=== PATIENT | male | born 1990 | race Caucasian/White ===

== ENCOUNTER 2018-02-10 17:21 | Emergency (ER) | payer SELFPAY ==
--- NOTE | 2018-02-10 17:54 | EDPHY ---
General - History Smoking Status: Current every day smoker Time Seen by Provider: 02/10/18 17:44 Narrative: CHIEF COMPLAINT: [facility] hold, intoxicated HISTORY OF PRESENT ILLNESS: Patient presents to emergency depart by EMS on ARC hold for acute alcohol intoxication. The patient says that he has been drinking whiskey and beer since 12:00 p.m. Today. Says he became very intoxicated and is "very sorry about this." He has no reports of fall or injury. His is been with him drinking as well, but she says she has had significantly less intake than him. She states that "he has had way too much to drink" but denies any injuries. He has no complaints of any kind. No modifying factors. REVIEW OF SYSTEMS: 10 systems were reviewed and negative with the exception of the elements mentioned in the history of present illness. PCP: None SPECIALISTS: None PAST MEDICAL HISTORY: Denies any medical history PAST SURGICAL HISTORY: Denies surgical history SOCIAL HISTORY: Denies tobacco use. Occasional alcohol use. Occasional marijuana use. 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 FAMILY HISTORY: Noncontributory EXAMINATION: General Appearance: Alert, no distress. Conversing in full sentences. Head: normocephalic, atraumatic Eyes: Pupils equal and round, no conjunctival pallor or injection ENT, Mouth: Mucous membranes moist. Airway patent Neck: Normal inspection, supple, non-tender Respiratory: Lungs are clear to auscultation Cardiovascular: Regular rate and rhythm. No murmur Gastrointestinal: Abdomen is soft and nontender Back: non-tender, no bony abnormalities Neurological: GCS 15. A&O, nonfocal, ambulatory without assistance. No ataxia. Normal [id number]. Skin: Warm and dry, no rash. No petechiae or purpura. No laceration or puncture Extremities: Nontender, no pedal edema Psychiatric: Mood and affect normal DIFFERENTIAL DIAGNOSES: Including but not limited to acute alcohol intoxication, alcohol dependency, alcohol abuse MDM: 5:45 p.m. Acute alcohol intoxication with no complaints of any kind. The patient does have strong odor of alcohol and appears to be intoxicated, but he is conversing in full sentences. He has ambulated without assistance. He has no abnormalities on examination with no reports of fall or injury. His spouse is at bedside and corroborates this. She has been drinking and is not comfortable driving him home at this time. Thus they will have a friend come to the emergency department. Otherwise they will be transported to the arc on an arc hold. I do feel it is reasonable further friend to take him home at this time if the when to come in and dried the home. 7:15 p.m. Patient has a friend, Gonzalo, at bedside. He is willing to take the patient and his home safely. He knows they are not allowed to drive until tomorrow. We discussed rest, increase fluid intake and ED precautions. He is discharged home stable condition. SUPERVISION: This patient was independently evaluated without direct involvement of or examination by the attending physician. CONSULTATION: None (Lan Chávez) Medical Decision Making: I did not see this patient while he was in the emergency department. However his care was discussed with the PA while the patient was in the department. I agree with treatment plan and management (Mandeep Torres) - Objective Vital Signs: Initial Vital Signs Temperature (C) 97.7 F 02/10/18 17:26 Heart Rate 83 02/10/18 17:26 Respiratory Rate 16 02/10/18 17:26 Blood Pressure 125/83 H 02/10/18 17:26 O2 Sat (%) 94 02/10/18 17:26 O2 Delivery Mode Room Air Allergies/Adverse Reactions: No Known Allergies Allergy (Unverified 02/10/18 17:26) Home Medications: Medication Instructions Recorded NK [No Known Home Meds] 02/10/18 Departure - Departure Disposition: Home, Routine, Self-Care Clinical Impression: Acute alcohol intoxication Qualifiers: Complication of substance-induced condition: uncomplicated Qualified Code(s): F10.929 - Alcohol use, unspecified with intoxication, unspecified Condition: Good Instructions: Alcohol Intoxication (ED) Additional Instructions: 1. Increase fluid intake for the next 2 days 2. Contact primary care physician for outpatient care. I provided the information for you 3. ED precautions for any headache, neck pain, chest pain or shortness of breath Referrals: Patient,NotPresent [Primary Care Provider] - As per Instructions Leonela Dyer MD [Medical Doctor] - As per Instructions
[2018-02-10 19:19] VITALS: BP 129/57
== END 2018-02-10 19:20 | disposition home or self-care (01) ==
DX: F10.129 Alcohol abuse with intoxication, unspecified (principal)